=== PATIENT | male | born 1960 | race Caucasian/White ===

== ENCOUNTER → 2017-10-26 | Outpatient (CLI) | payer BC ==
--- NOTE | ~2017-10-26 | PF ---
[place], [place] PULMONARY FUNCTION TEST NAME: JUANITA NIETO JR UNIT #: [id number] ROOM: DOCTOR: ELVIS SUMNER MD,ADONAY BIRTHDATE: [birth year] DOS: 10/26/2017 The test was ordered by Dr. Faye Hardy. HISTORY: This is a 56-year-old male with height of 67 inches, weight of 200 pounds. The testing was done for assessment of symptoms of shortness of breath with rare wheezing and nonproductive cough. The patient has not been known with any history of tobacco use, inhalation to ____ chemical was described in the past, that occurred in 2004. SPIROMETRY: The FVC were recorded 4.1 liters, 96% predicted value normal, FEV1 was noted at 2.32 liters at 99% predicted value normal as well. The ratio of FEV1/FVC was recorded 79%, normal. Flow volume loop was noted as normal. LUNG VOLUME: Thoracic gas volume recorded as 84%, residual volume 64%, total lung capacity 89% of the lung volumes were noted normal. The patient's lung diffusion recorded as increased at 121%. The patient's airway resistance and passive conductance were noted normal. FINAL IMPRESSION: The current pulmonary function tests were noted as normal study. ADONAY LEAL MD CM:PFREPORT:PULMONARY FUNCTION TEST [id number] ADONAY SUMNER MD
== END | disposition home or self-care (01) ==
LOC: CP 12:09
DX: R06.02 Shortness of breath (principal)

== ENCOUNTER 2019-03-06 10:52 | Inpatient (IN) | payer BC ==
[~2019-03-06] VITALS: Ht 170.1 cm; Wt 90.7 kg
--- NOTE | ~2019-03-06 | PR ---
[place], [place] PROGRESS NOTE NAME: [id number] UNIT #: [id number] ROOM: 403 DOCTOR: MARBIN PORRAS MD BIRTHDATE: [birth year] DOS: 03/08/2019 SUBJECTIVE: The patient's left lower quadrant pains have improved. OBJECTIVE: VITAL SIGNS: Blood pressure 136/70, heart rate of 67 beats per minute, breathing 18 times per minute, temperature 98 degrees Fahrenheit. GENERAL APPEARANCE: The patient is alert and oriented x 3, in no visible distress. HEENT AND NECK: Exam within normal limits. CARDIOVASCULAR SYSTEM: Heart rate is regular in rate and rhythm. S1 and S2 normally audible. LUNGS: Clear to auscultation. ABDOMEN: Soft, nontender. No obvious organomegaly. Bowel sounds are present. EXTREMITIES: Without significant cyanosis or edema. IMPRESSION: 1. The patient with acute sigmoid diverticulitis with left lower quadrant pains, improving with antibiotics. I will give him one more day of antibiotics and possibly discharge him to home tomorrow on oral antibiotics. 2. Benign essential hypertension. Blood pressure being monitored, treated and controlled. 3. Mixed hyperlipidemia, treated with simvastatin. 4. Gastroesophageal reflux disease and esophagitis, asymptomatic with Protonix. MARBIN PORRAS MD CM:PNTRANS [id number] MARBIN PORRAS MD 03/09/19 1615 interface
--- NOTE | ~2019-03-06 | WRIGHTHP ---
[place], [place] PATIENT HISTORY AND PHYSICAL EXAM NAME: JUANITA NIETO JR UNIT #: [id number] ROOM: 403 DOCTOR: MARBIN PORRAS MD BIRTHDATE: [birth year] DOS: 03/06/2019 HISTORY OF PRESENT ILLNESS: The patient is a 58-year-old gentleman with a past medical history of benign essential hypertension, diverticulitis, skin cancer, compression fractures in the past of the back, mixed hyperlipidemia. The patient was admitted by Dr. Faye Hardy to [facility] for increasing left lower quadrant pain and failed outpatient treatment. The patient was found to have acute distal descending colon and proximal sigmoid diverticulitis on CT scan of the abdomen and pelvis. The patient says his pains are starting to improve now after admission to the hospital and treatment with antibiotics. No chest pain, no shortness of breath, no GI or urinary symptoms. The patient has had left lower quadrant pains for 4 days now and he did have some vomiting today. REVIEW OF SYSTEMS: RESPIRATORY: No increasing shortness of breath. GASTROINTESTINAL: No nausea, vomiting, diarrhea, constipation. CARDIOVASCULAR: No chest pains or palpitations. HOME MEDICATIONS: Clonidine, simvastatin, Protonix, amlodipine, lisinopril, atenolol. ALLERGIES: KNOWN ALLERGIES TO PENICILLIN. FAMILY HISTORY: Noncontributory. PHYSICAL EXAMINATION GENERAL: Alert, oriented x 3. VITAL SIGNS: Blood pressure 150/89, heart rate 61 beats per minute, breathing 18 times per minute, temperature 98 degrees Fahrenheit. LABORATORY DATA: CT scan of the abdomen and pelvis involving the proximal sigmoid colon. Normal serum electrolytes. Normal CBC. IMPRESSION AND PLAN: 1. Acute sigmoid diverticulitis with pain and now some vomiting, clinically improving with treatment with metronidazole and ciprofloxacin. 2. Benign essential hypertension. Blood pressure being monitored, treated and controlled. 3. Mixed hyperlipidemia, treated with simvastatin, which was continued. 4. Gastroesophageal reflux disease and esophagitis, asymptomatic with Protonix. [place], [place] PATIENT HISTORY AND PHYSICAL EXAM NAME: JUANITA NIETO JR UNIT #: [id number] ROOM: 403 DOCTOR: MARBIN PORRAS MD BIRTHDATE: [birth year] MARBIN PORRAS MD CM:HISPHYS:PATIENT HISTORY AND PHYSICAL EXAMINATION [id number] MARBIN PORRAS MD 03/07/19 1401 interface
--- NOTE | ~2019-03-06 | DS ---
[place], [place] DISCHARGE SUMMARY NAME: JUANITA NIETO JR UNIT #: [id number] ROOM: 403 DOCTOR: MARBIN PORRAS MD BIRTHDATE: [birth year] DOS: 03/09/2019 DISCHARGE DIAGNOSES: 1. Sigmoid diverticulitis. 2. Benign essential hypertension. 3. Mixed hyperlipidemia. 4. Gastroesophageal reflux disease and esophagitis. HOSPITAL COURSE: The patient admitted by Dr. Faye Hardy from her office with acute sigmoid diverticulitis and failed outpatient treatment. After admission, the patient started on ciprofloxacin and Flagyl and the left lower quadrant pains have improved by about 98% according to the patient. He is tolerating diet and is asymptomatic and not requiring pain medications anymore. The patient to be discharged to home and given 1 more week of antibiotics at home. The patient required ciprofloxacin because he is allergic to PENICILLIN and the patient responded very well to the antibiotics. The patient has been asked to avoid strenuous activities because of ciprofloxacin being responsible for some tendon ruptures. The patient can go back to full work activity in 1 week. Mixed hyperlipidemia, treated and controlled with simvastatin. Gastroesophageal reflux disease and esophagitis, asymptomatic with Protonix. Benign essential hypertension. Blood pressures were monitored and are staying normal. LABORATORY DATA: Blood cultures negative. Normal CBC, hemoglobin 13.9. Lactic acid level was normal. Normal serum electrolytes. CT of the abdomen and pelvis showed sigmoid diverticulitis. DISCHARGE MANAGEMENT: Flagyl 500 mg 3 times a day for a week, ciprofloxacin 500 mg b.i.d. for a week, atenolol 100 mg daily, Singulair 10 mg a day, lisinopril 20 mg a day, hydrochlorothiazide 25 mg daily, aspirin 81 mg a day, amlodipine 2.5 mg daily, Tylenol p.r.n., Protonix 40 mg a day, simvastatin 20 mg daily, clonidine 0.2 mg at bedtime. Follow up with PCP, Dr. Faye Hardy within a week. [place], [place] DISCHARGE SUMMARY NAME: JUANITA NIETO JR UNIT #: [id number] ROOM: 403 DOCTOR: MARBIN PORRAS MD BIRTHDATE: [birth year] MARBIN PORRAS MD CM:DELIA [id number] MARBIN PORRAS MD 03/10/19 0126 interface
--- NOTE | 2019-03-06 11:23 | NUR ---
A 58, admitted to , under the services of DAYLIN Gonzalez MD with a diagnosis of DIVERTICULITIS. Chief complaint is lower left abd pain. Patient arrived via ambulatory from [place]. Initial assessment completed. Vital signs taken and recorded. DAYLIN GONZALEZ MD notified of admission to the unit. Orders received. See assessment for past medical history, medications and allergies. Patient and/or family oriented to unit. [facility]. Clothing/patient valuable form completed. GLYNN ESPINOSA
[2019-03-06 11:31] VITALS: BP 151/93
[2019-03-06] MEDS ORDERED: ATENOLOL100 M1 PO (11:40)
[2019-03-06] MEDS ORDERED: SINGULAIR10 M1 PO (11:40)
[2019-03-06] MEDS ORDERED: NORVASC2.5 MG PO (11:40)
[2019-03-06] MEDS ORDERED: PANTOPRAZOLE SO40 MG PO (11:41)
[2019-03-06] MEDS ORDERED: ZOCOR20 MG PO (11:41)
[2019-03-06] MEDS ORDERED: LISINOPRIL20 MG PO (11:42)
[2019-03-06] MEDS ORDERED: CLONIDINE0.2 MG PO (11:42)
[2019-03-06] MEDS ORDERED: TRIAMTERENE & H1 CAP PO (11:43)
[2019-03-06] MEDS ORDERED: ASPIRIN81 M1 PO (11:43)
[2019-03-06 12:34] LABS: BASO % 0.2 % (0.0-1.0); EOS # 0.1 10*3/uL (0.0-0.4); EOS % 1.4 % (1.0-4.0); HEMATOCRIT 40.8 % (42.0-52.0); HEMOGLOBIN 13.9 g/dl (14.0-18.0); LYMPH # 1.5 10*3/uL (1.3-4.4); LYMPH % 17.5 % (27.0-41.0); MEAN CELL VOLUME 89.7 fl (80.0-94.0); MEAN CORPUSCULAR HGB 30.5 pg (27.0-31.0); MEAN CORPUSCULAR HGB CONC 34.1 g/dl (33.0-37.0); MEAN PLATELET VOLUME 9.7 fl (9.6-12.3); MONO # 0.9 10*3/uL (0.1-1.0); MONO % 10.8 % (3.0-9.0); NEUT # 5.8 10*3/uL (2.3-7.9); NEUT % 69.7 % (47.0-73.0); PLATELET COUNT AUTOMATED 168 10*3/uL (130-400); RED BLOOD COUNT 4.55 10*6/uL (4.50-5.90); RED CELL DISTRI WIDTH 12.2 % (0-14.5); WHITE BLOOD COUNT 8.4 10*3/uL (4.8-10.8)
[2019-03-06 12:45] LABS: BUN 12 mg/dl (7-24); CHLORIDE 107 mmol/L (98-107); POTASSIUM 3.8 mmol/L (3.5-5.1); SODIUM 140 mmol/L (136-145)
--- NOTE | 2019-03-06 14:29 | NUR ---
diluadid has been effective for control of lower abd pain pt tolerating ct prep well
[2019-03-06 16:00] VITALS: BP 138/84
--- NOTE | 2019-03-06 19:54 | NUR ---
MEDICATED WITH DILAUDID FOR C/O ABDOMINAL PAIN. IV FLUIDS INFUSING WITHOUT DIFFICULTY; SITE ASYMPTOMATIC. VOICES NO OTHER C/O AT THIS TIME. CALL LIGHT WITHIN REACH.
[2019-03-06 20:00] VITALS: BP 146/88
[2019-03-07] VITALS: BP 112/67
--- NOTE | 2019-03-07 | NUR ---
RESTING IN BED WITH EYES CLOSED; DILAUDID GIVEN EARLIER APPARENTLY EFFECTIVE. CALL LIGHT WITHIN REACH.
--- NOTE | 2019-03-07 03:44 | NUR ---
MEDICATED WITH DILAUDID FOR C/O ABDOMINAL PAIN RATED A 9/10.
--- NOTE | 2019-03-07 06:00 | NUR ---
RESTING IN BED WITH EYES CLOSED. DILAUDID APPARENTLY EFFECTIVE. CALL LIGHT WITH REACH.
[2019-03-07 08:00] VITALS: BP 121/80
--- NOTE | 2019-03-07 09:00 | NUR ---
Automated Equipment Engineer Technician in to talk to patient. Patient states lives at home with his . There are 15 steps in the home. Physician: Dr. Faye Hardy [facility]acy: [facility] Home health services: none Patient's level of ADLs: INDEPENDENT Patient has working utilities: yes DME: none Follow-up physician's appointment after d/c: he prefers to make his own follow up appt after discharge Does patient want to access PORTAL?: no Discharge plan discussed with patient. he lives at home with his . he is independent in his ADLs and ambulation. Discussed home health care services and he denies any home needs at this time. When medically stable he will be discharged to home. 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 [place]
--- NOTE | 2019-03-07 11:33 | NUR ---
PATIENT MEDICATED WITH IV DILAUDID AT THIS TIME PER ORDER FOR COMPLAINTS OF PAIN IN ABDOMEN 06/28. WILL MONITOR FOR EFFECTIVENESS.
[2019-03-07 12:00] VITALS: BP 150/89; BP 185/83
--- NOTE | 2019-03-07 13:14 | NUR ---
ZOFRAN GIVEN FOR NAUSEA. MONITOR. AT BEDSIDE. IVF GOING.
--- NOTE | 2019-03-07 14:00 | NUR ---
PER PATIENT, PAIN MEDICATION HAS BEEN EFFECTIVE. NO FURTHER COMPLAINTS.
[2019-03-07 16:00] VITALS: BP 137/79
[2019-03-07 20:00] VITALS: BP 113/65
--- NOTE | 2019-03-07 20:07 | NUR ---
DILAUDID GIVEN PER REQUEST FOR ABD PAIN RATED 7/10
[2019-03-08] VITALS: BP 87/56
[2019-03-08 08:00] VITALS: BP 123/79
--- NOTE | 2019-03-08 09:00 | NUR ---
RESTNG IN BED. DENIES ANY ABDOMINAL PAIN. NON-TENDER TO PALPATE. VITALS STABLE. PULSE OX 98% ON ROOM AIR. NO EDENA NOTED
[2019-03-08 16:00] VITALS: BP 136/70
[2019-03-09] VITALS: BP 112/61
[2019-03-09 08:00] VITALS: BP 124/80
[2019-03-09 12:00] VITALS: BP 125/61
[2019-03-09 16:00] VITALS: BP 118/79
[2019-03-09] MEDS ORDERED: FLAGYL500 MG PO (16:07)
[2019-03-09] MEDS ORDERED: CIPRO500 MG PO (16:07)
--- NOTE | 2019-03-09 16:40 | NUR ---
Discharge instructions reviewed with patient/family. Patient receptive and verbalizes understanding. Follow-up care arranged. Written instructions given to patient/family. CODY COTE
== END 2019-03-09 16:40 | disposition home or self-care (01) | DRG 392 ==
LOC: 4E 10:52
PROVIDERS: ADMIT Internal Medicine
DX: K57.32 Diverticulitis of large intestine without perforation or abscess without bleeding (principal); K21.0 Gastro-esophageal reflux disease with esophagitis; I10 Essential (primary) hypertension; E78.2 Mixed hyperlipidemia; Z85.828 Personal history of other malignant neoplasm of skin; Z88.0 Allergy status to penicillin; Z79.899 Other long term (current) drug therapy

== ENCOUNTER → 2019-09-02 | Outpatient (CLI) | payer BC ==
[~2019-09-02] MED LIST: ASPIRIN81 M1 PO; ATENOLOL100 M1 PO; CIPRO500 MG PO; CLONIDINE0.2 MG PO; FLAGYL500 MG PO; LISINOPRIL20 MG PO; NORVASC2.5 MG PO; PANTOPRAZOLE SO40 MG PO; SINGULAIR10 M1 PO; TRIAMTERENE & H1 CAP PO; ZOCOR20 MG PO
--- NOTE | ~2019-09-02 | HM ---
[place], [place] HOLTER MONITOR REPORT NAME: JUANITA NIETO JR UNIT #: [id number] ROOM: DOCTOR: DAYLIN KING MD BIRTHDATE: [birth year] DOS: REASON FOR TESTING: Evaluation of palpitation. PROCEDURE: After explaining procedure, the patient was subjected to a 24-hour Holter. Average heart rate was 59. Minimum heart rate was 54 with a maximum heart rate of 106. Ventricular ectopy in the form of PVCs was noted. Supraventricular activity in the form of atrial couplets and PACs was seen. No other arrhythmias were noted during the evaluation.. DAYLIN KING MD CM:HOLTER:HOLTER MONITOR REPORT [id number] DAYLIN KING MD
== END | disposition home or self-care (01) ==
LOC: CARD 08-13 10:00
DX: R00.2 Palpitations (principal)

== ENCOUNTER → 2020-01-27 | Outpatient (CLI) | payer BC ==
[2020-01-27 09:15] LABS: CREATININE 0.82 mg/dL (0.70-1.30)
== END | disposition home or self-care (01) ==
LOC: CT 08:26 → LAB 08:26 → CT 09:00
PROVIDERS: Radiology Diagnostic Radiology
DX: R91.1 Solitary pulmonary nodule (principal)

== ENCOUNTER → 2020-05-03 | Outpatient (CLI) | payer BC ==
[2020-05-03 11:20] LABS: CREATININE 0.79 mg/dL (0.70-1.30)
== END | disposition home or self-care (01) ==
LOC: CT 10:44 → LAB 10:44 → CT 11:00
PROVIDERS: Radiology Diagnostic Radiology
DX: K57.30 Diverticulosis of large intestine without perforation or abscess without bleeding (principal)

== ENCOUNTER → 2020-12-20 | Outpatient (CLI) | payer BC | END | disposition home or self-care (01) | LOC: CARD 07:55 | PROVIDERS: ATTEND Internal Medicine | DX: I48.0 Paroxysmal atrial fibrillation (principal) ==

== ENCOUNTER → 2021-02-28 | Outpatient (CLI) | payer BC | END | disposition home or self-care (01) | LOC: CT 02-25 09:00 → MRI 02-25 09:00 → CT 11:00 | PROVIDERS: ATTEND Internal Medicine | DX: R91.1 Solitary pulmonary nodule (principal) ==

== ENCOUNTER → 2021-12-09 | Outpatient (CLI) | payer BC ==
[2021-12-09 09:41] LABS: BASO % 0.6 % (0.0-1.0); EOS # 0.3 10*3/uL (0.0-0.4); EOS % 5.8 % (1.0-4.0); HEMATOCRIT 42.3 % (42.0-52.0); LYMPH % 36.6 % (27.0-41.0); MEAN CELL VOLUME 90.2 fl (80.0-94.0); MEAN CORPUSCULAR HGB 30.9 pg (27.0-31.0); MEAN CORPUSCULAR HGB CONC 34.3 g/dl (33.0-37.0); MEAN PLATELET VOLUME 9.7 fl (9.6-12.3); MONO # 0.6 10*3/uL (0.1-1.0); MONO % 11.7 % (3.0-9.0); NEUT # 2.4 10*3/uL (2.3-7.9); NEUT % 44.9 % (47.0-73.0); PLATELET COUNT AUTOMATED 220 10*3/uL (130-400); RED BLOOD COUNT 4.69 10*6/uL (4.50-5.90); RED CELL DISTRI WIDTH 12.4 % (0-14.5); WHITE BLOOD COUNT 5.4 10*3/uL (4.8-10.8)
[2021-12-09 10:07] LABS: CHLORIDE 108 mmol/L (98-107); POTASSIUM 4.4 mmol/L (3.5-5.1); SODIUM 142 mmol/L (136-145)
[2021-12-09 10:22] LABS: ALBUMIN 4.1 gm/dl (3.1-4.5); ALKALINE PHOSPHATASE 63 U/L (45-117); BUN 22 mg/dl (7-24); CHOLESTEROL 183 mg/dL (<200); CREATININE 0.96 mg/dL (0.70-1.30); FREE T4 0.96 ng/dl (0.76-1.46); LDL CHOLESTEROL 100 mg/dL (9-159); SGOT/AST 11 IU/L (3-35); SGPT/ALT 25 U/L (12-78); THYROID STIM HORMONE (HS) 0.639 uIU/ml (0.358-4.75); TOTAL PROTEIN 7.1 gm/dL (6.4-8.2); TRIGLYCERIDES 156 mg/dl (<150)
[2021-12-09 11:15] LABS: VITAMIN D, 25-HYDROXY 49.9 ng/mL (30-100)
== END | disposition home or self-care (01) ==
LOC: LAB 09:01
PROVIDERS: ATTEND Internal Medicine
DX: Z12.5 Encounter for screening for malignant neoplasm of prostate (principal); Z00.00 Encounter for general adult medical examination without abnormal findings; I10 Essential (primary) hypertension; E78.2 Mixed hyperlipidemia; E55.9 Vitamin D deficiency, unspecified

== ENCOUNTER → 2022-06-23 | Outpatient (CLI) | payer BC ==
[2022-06-23 09:33] LABS: CREATININE 0.93 mg/dL (0.70-1.30)
== END | disposition home or self-care (01) ==
LOC: CT 06-21 08:00 → LAB 08:34 → CT 09:00
PROVIDERS: ATTEND Internal Medicine
DX: R91.8 Other nonspecific abnormal finding of lung field (principal); I25.10 Atherosclerotic heart disease of native coronary artery without angina pectoris